=== PATIENT | male | born 1955 | race Caucasian/White ===

== ENCOUNTER 2017-04-17 14:38 | Inpatient (IN) | payer OTHER ==
[2017-04-17 16:39] VITALS: BMI 27.1
--- NOTE | 2017-04-17 18:27 | HP ---
CIWA Score - CIWA Score Nausea/Vomitin Muscle Tremors: 3 Anxiety: 3 Agitation: 3 Paroxysmal Sweats: 1-Minimal Palms Moist Orientation: 0-Oriented Tacttile Disturbances: 2-Mild Itch/Numbness/Burn Auditory Disturbances: 2-Mild Harshness/Frighten Visual Disturbances: 1-Very Mild Sensitivity Headache: 2-Mild CIWA-Ar Total Score: 20 Admission ROS BHS - HPI Chief Complaint: I AM HERE FOR DETOX FROM XANAX AND KLONOPIN Allergies/Adverse Reactions: Allergies Allergy/AdvReac Type Severity Reaction Status Date / Time No Known Allergies Allergy Verified 09/22/15 17:19 History of Present Illness: THIS 62 YEARS OLD MALE WITH XANAX,KLONOPIN DEPENDENCE,MMTP 90 MGS/DAY,LAST MEDICAED TODY, HEPATITIS C FOLLOW UP WITH CLINIC SEIZURE LAST 04/16/17 NICOTINE DEPENDENCE WEIGHT LOSS LONGEST PERIOD OF SOBRIETY 7 YEARS S/P APPENDECTOMY AGE 13 YEARS S/P UMBILICAL HERNIA DEPRESSION - Ebola screening Have you traveled outside of the country in the last 21 days: No Have you had contact with anyone from an Ebola affected area: No Have you been sick,other than usual withdrawal symptoms: No - Review of Systems Constitutional: Loss of Appetite, Malaise, Night Sweats, Changes in sleep, Weakness EENT: reports: Nose Congestion Respiratory: reports: Other (ASTHMA) Cardiac: reports: No Symptoms Reported GI: reports: Nausea, Vomiting, Abdominal cramping : reports: Other Musculoskeletal: reports: Back Pain, Muscle Pain Integumentary: reports: Dryness Neuro: reports: Headache, Tremors Endocrine: reports: No Symptoms Reported Hematology: reports: No Symptoms Reported Psychiatric: reports: No Sypmtoms Reported, Judgement Intact, Mood/Affect Appropiate, Orientated x3, Depressed Patient History - Patient Medical History Hx Anemia: No Hx Asthma: No Hx Chronic Obstructive Pulmonary Disease (COPD): Yes (COPD) Hx Cancer: No Hx Cardiac Disorders: No Hx Congestive Heart Failure: No Hx Hypertension: No Hx Hypercholesterolemia: No Hx Pacemaker: No HX Cerebrovascular Accident: No Hx Seizures: No Hx Dementia: No Hx Diabetes: No Hx Gastrointestinal Disorders: No Hx Liver Disease: No Hx Genitourinary Disorders: No Hx Sexually Transmitted Disorders: No Hx Renal Disease (ESRD): No Hx Thyroid Disease: No Hx Human Immunodeficiency Virus (HIV): No (last 08/30 negative NEGATIVE) Hx Hepatitis C: Yes (NO TREATMENT) Hx Depression: Yes Hx Suicide Attempt: No Hx Bipolar Disorder: No Hx Schizophrenia: No Other Medical History: NO SUICIDAL,NO HOMICIDAL - Patient Surgical History Past Surgical History: Yes Hx Neurologic Surgery: No Hx Cataract Extraction: No Hx Cardiac Surgery: No Hx Lung Surgery: No Hx Breast Surgery: No Hx Breast Biopsy: No Hx Abdominal Surgery: Yes (umbilical hernia) Hx Appendectomy: Yes (at 14 yrs old.) Hx Cholecystectomy: No Hx Genitourinary Surgery: No Hx Section: No Hx Orthopedic Surgery: No Other Surgical History: HERNIA REPAIR 01/28 - PPD History Previous Implant?: Yes Documented Results: Positive w/o proof Implanted On Prior [facility] Admission?: No PPD to be Administered?: No - Smoking Cessation Smoking history: Current every day smoker Have you smoked in the past 12 months: Yes Aproximately how many cigarettes per day: 6 Hx Chewing Tobacco Use: No Initiated information on smoking cessation: Yes 'Breaking Loose' booklet given: 04/17/17 - Substance & Tx. History Hx Alcohol Use: No Hx Substance Use: Yes Substance Use Type: Tranquilizers Hx Substance Use Treatment: Yes ([facility] 01/28) - Substances Abused Alprazolam (Xanax) Route: Oral Frequency: Daily Amount used: 4-6mg Age of first use: 9 Date of Last Use: 04/16/17 Benzodiazepine (Klonopin) Route: Oral Frequency: Daily Amount used: 4-5mg Age of first use: 9 Date of Last Use: 04/17/17 Heroin Route: Inhalation Frequency: 1-3 times last 30 days Amount used: 1 bag Age of first use: 11 Date of Last Use: 04/15/17 Alcohol Route: Oral Frequency: 1-2 times per week Amount used: 1 pint Age of first use: 9 Date of Last Use: 04/13/17 Family Disease History - Family Disease History Family Disease History: Diabetes: Mother (), Sister (ALCOHOL,DSA, ), Other: Sister Admission Physical Exam BHS - Vital Signs Vital Signs: Vital Signs - 24 hr 04/17/17 16:37 Temperature 97 F L Pulse Rate 70 Respiratory 20 Rate Blood Pressure 126/82 - Physical General Appearance: Yes: Moderate Distress, Tremorous, Irritable, Sweating, Anxious HEENTM: Yes: Normal ENT Inspection, HAL, Pharynx Normal Respiratory: Yes: Lungs Clear, Normal Breath Sounds, No Respiratory Distress Neck: Yes: Within Normal Limits, Supple, Trachea in good position Breast: Yes: Within Normal Limits Cardiology: Yes: Within Normal Limits, Regular Rhythm, Regular Rate, S1, S2 Abdominal: Yes: Within Normal Limits, Normal Bowel Sounds, Non Tender, Flat, Soft, Surgical Scar Genitourinary: Yes: Within Normal Limits Back: Yes: Muscle Spasm Musculoskeletal: Yes: Back pain, Muscle Pain Extremities: Yes: Within Normal Limits, Normal Range of Motion, Tremors Neurological: Yes: metal sorter II-XII NML intact, Alert, Motor Strength 5/5 Integumentary: Yes: Dry Lymphatic: Yes: Within Normal Limits - Diagnostic (1) Uncomplicated sedative, hypnotic or anxiolytic withdrawal Current Visit: Yes Status: Chronic (2) Anxiety and depression Current Visit: No Status: Acute (3) Hepatitis C Current Visit: No Status: Acute Qualifiers: Viral hepatitis chronicity: chronic Hepatic coma status: without hepatic coma Qualified Code(s): B18.2 - Chronic viral hepatitis C; B18.2 - Chronic viral hepatitis C; B18.2 - Chronic viral hepatitis C; B18.2 - Chronic viral hepatitis C (4) Insomnia Current Visit: No Status: Acute (5) Methadone maintenance therapy patient Current Visit: Yes Status: Chronic (6) Nicotine dependence Current Visit: No Status: Acute (7) History of appendectomy Current Visit: Yes Status: Acute Cleared for Admission [facility] - Detox or Rehab [facility] Level of Care: Medically Managed Detox Regimen/Protocol: Valium S Breath Alcohol Content Breath Alcohol Content: 0 Urine Drug Screen - Results Drug Screen Negative: No Urine Drug Screen Results: OPI-Opiates, BZO-Benzodiazepines, MTD-Methadone, TCA- Tricyclic Antidepress
[2017-04-17] MEDS ORDERED: MAGNESIUM HYDROX 2400MG/30ML ORAL SUSPENSION 30 ML CUP PO PRN (18:40)
[2017-04-17] MEDS ORDERED: ACETAMINOPHEN 325 MG TABLET (FP) PO PRN (18:40)
[2017-04-17] MEDS ORDERED: IBUPROFEN 400 MG TABLET (FP) PO PRN (18:40)
[2017-04-17] MEDS ORDERED: LOPERAMIDE HCL 2 MG CAPSULE PO PRN (18:40)
[2017-04-17] MEDS ORDERED: MENTHOL/PHENOL 1 EACH UD MM PRN (18:40)
[2017-04-17] MEDS ORDERED: P-EPHED 60MG/TRIPROLIDI 2.5MG TABLET PO PRN (18:40)
[2017-04-17] MEDS ORDERED: MAG HYDROX/AL HYDROX/SIMETH 30 ML UNIT-DOSE CUP PO PRN (18:40)
[2017-04-17] MEDS ORDERED: MAGNESIUM CITRATE 300 ML BOTTLE PO PRN (18:40)
[2017-04-17] MEDS ORDERED: hydrOXYzine PAMOATE 50 MG CAPSULE (FP) PO PRN (18:40)
[2017-04-17] MEDS ORDERED: diazePAM 5 MG TABLET PO ONE (20:11)
[2017-04-17] MEDS ORDERED: ALBUTEROL SO4 18 GM HFA INHALER IH ONE (21:02)
[2017-04-17] MEDS: ALBUTEROL SO4 18 GM HFA INHALER IH PRN (21:05)
[2017-04-17] MEDS: NICOTINE 14 MG/24 HOURS TOPICAL PATCH TD SCH (21:06)
[2017-04-17] MEDS: diphenhydrAMINE HCL 50 MG CAPSULE PO PRN (22:44)
[2017-04-17] MEDS: BUDESONIDE/FORMETEROL FUMARATE 80/4.5 mcg INHALER IH SCH (22:45)
[2017-04-17] MEDS: THIAMINE HCL 100 MG TABLET (FP) PO SCH (22:45)
[2017-04-17] MEDS: diazePAM 5 MG TABLET PO SCH (22:45)
[2017-04-17 23:58] LABS: URINE APPEARANCE CLEAR; URINE BILIRUBIN NEGATIVE (NEGATIVE); URINE BLOOD NEGATIVE (NEGATIVE); URINE COLOR YELLOW; URINE GLUCOSE (UA) NEGATIVE (NEGATIVE); URINE KETONE NEGATIVE (NEGATIVE); URINE LEUK ESTERASE NEGATIVE (NEGATIVE); URINE NITRITE NEGATIVE (NEGATIVE); URINE PROTEIN NEGATIVE (NEGATIVE)
[2017-04-18] MEDS: diazePAM 5 MG TABLET PO SCH ×3 (06:28→22:47)
[2017-04-18] MEDS: ALBUTEROL SO4 18 GM HFA INHALER IH PRN ×3 (06:28→22:47)
[2017-04-18] MEDS ORDERED: METHADONE HCL 10 MG TABLET PO ONE (09:32)
[2017-04-18] MEDS ORDERED: METHADONE 80 MG, METHADONE 10 MG PO ONE (10:05)
[2017-04-18 10:21] LABS: MCH 29.9 pg (25.7-33.7); MCHC 33.1 g/dl (32.0-35.9); MEAN CELL VOLUME 90.4 fl (80-96); MEAN PLT VOLUME 10.6 fl (7.5-11.1); PLATELET COUNT 106 K/MM3 (134-434); RDW 14.7 % (11.9-15.9); WHITE BLOOD COUNT 9.3 K/mm3 (4.0-10.0)
--- NOTE | 2017-04-18 10:31 | CONSULT ---
[facility] Psychiatric Consult - Data Date of interview: 04/18/17 Admission source: [facility] Identifying data: This is a 62 year old male father of 2, unemployed on SSI, residing with his friend in [facility]. Substance Abuse History: Patient reports started xanax, klonopin at age of 9, daily use 4-6 mg daily, drinking alcohol 1 pint 2-3 x weekly, he is on MMTP 90 mg. Longest clean time is 7 years. Medical History: Astma. Hep C, drug withdrawal seizure x 1. Psychiatric History: Reports seeing a psychiatrist in 2016 in [place] to address anxiety and insomnia, reports he was prescribed klonopin and xanax and short term treatment with Buspar, while at [facility] detox seen by and was put on ambien. Patient reports he feels anxious all day and continues with difficulties at nights. No history of psychiatric hospitalizations. Physical/Sexual Abuse/Trauma History: Denies. Mental Status Exam - Mental Status Exam Alert and Oriented to: Time, Place, Person Patient Appearance: Disheveled Mood: Anxious Affect: Appropriate, Mood Congruent Patient Behavior: Appropriate, Cooperative Speech Pattern: Clear, Appropriate Voice Loudness: Normal Thought Process: Goal Oriented Thought Disorder: Not Present Hallucinations: Denies Suicidal Ideation: Denies Homicidal Ideation: Denies Insight/Judgement: Fair Sleep: Poorly Appetite: Fair Muscle strength/Tone: Normal Gait/Station: Normal Psychiatric Findings - Problem List ([place] 1, 2,3) (1) Substance-induced anxiety disorder Current Visit: Yes Status: Acute (2) Methadone maintenance therapy patient Current Visit: No Status: Acute (3) Nicotine dependence Current Visit: No Status: Acute (4) Sedative addiction Current Visit: Yes Status: Acute - Initial Treatment Plan Initial Treatment Plan: discussed indications and properties of Buspar, medications was recommended patient agreed with careplan, will start Buspar 5 mg po bid, continue detox. protocol.
[2017-04-18 11:06] LABS: ALBUMIN 3.3 g/dl (3.4-5.0); ALK PHOS 65 U/L (45-117); ANION GAP 6 (8-16); BILIRUBIN,TOTAL 1.1 mg/dL (0.2-1.0); CALCIUM 8.3 mg/dL (8.5-10.1); CO2 31 mmol/L (21-32); GLUCOSE,RANDOM 170 mg/dL (74-106); SGOT/AST 31 U/L (15-37); SGPT/ALT 46 U/L (12-78); TOT PROT 6.6 g/dl (6.4-8.2)
[2017-04-18] MEDS: BUDESONIDE/FORMETEROL FUMARATE 80/4.5 mcg INHALER IH SCH ×2 (11:12→22:47)
[2017-04-18] MEDS: diazePAM 5 MG TABLET PO PRN ×2 (11:12→17:35)
[2017-04-18] MEDS: PRENATAL VITAMINS W/ FOLIC ACID TABLET (FP) PO SCH (11:12)
[2017-04-18] MEDS: NICOTINE 14 MG/24 HOURS TOPICAL PATCH TD SCH (11:14)
[2017-04-18] MEDS ORDERED: METHADONE HCL 40 MG DISPERSABLE TABLET ONE (11:16)
[2017-04-18] MEDS ORDERED: METHADONE HCL 10 MG TABLET ONE (11:16)
[2017-04-18] MEDS: busPIRone HCL 5 MG TABLET PO SCH ×2 (11:17→22:47)
[2017-04-18] MEDS ORDERED: FLU VACCINE QUAD 60 MCG/0.5 ML (MDV 17-18) IM ONE (12:00)
--- NOTE | 2017-04-18 12:36 | PN ---
S CIWA - CIWA Score Nausea/Vomitin-No Nausea/No Vomiting Muscle Tremors: 4-Moderate,w/Arms Extend Anxiety: 3 Agitation: 4-Moderately Restless Paroxysmal Sweats: 3 Orientation: 0-Oriented Tacttile Disturbances: 0-None Auditory Disturbances: 0-None Visual Disturbances: 0-None Headache: 0-None Present CIWA-Ar Total Score: 14 BHS Progress Note (SOAP) Subjective: agitation anxiety interrupted sleep body aches sweats Objective: 04/18/17 12:36 Vital Signs Temperature 98.1 F 04/18/17 11:23 Pulse Rate 91 H 04/18/17 11:23 Respiratory Rate 20 04/18/17 11:23 Blood Pressure 141/75 04/18/17 11:23 O2 Sat by Pulse Oximetry (%) Laboratory Tests 04/17/17 04/18/17 04/18/17 23:45 07:00 07:00 WBC 9.3 D RBC 4.33 Hgb 12.9 Hct 39.1 MCV 90.4 MCH 29.9 MCHC 33.1 RDW 14.7 Plt Count 106 L D MPV 10.6 Sodium 137 Potassium 4.2 Chloride 100 Carbon Dioxide 31 Anion Gap 6 L BUN 12 D Creatinine 1.0 Creat Clearance w eGFR > 60 Random Glucose 170 H D Calcium 8.3 L Total Bilirubin 1.1 H D AST 31 ALT 46 D Alkaline Phosphatase 65 Total Protein 6.6 Albumin 3.3 L Urine Color Yellow Urine Appearance Clear Urine pH 5.0 D Ur Specific [place] >= 1.030 H Urine Protein Negative Urine Glucose (UA) Negative Urine Ketones Negative Urine Blood Negative Urine Nitrite Negative Urine Bilirubin Negative Urine Urobilinogen 2.0 RPR Titer 04/18/17 07:00 WBC RBC Hgb Hct MCV MCH MCHC RDW Plt Count MPV Sodium Potassium Chloride Carbon Dioxide Anion Gap BUN Creatinine Creat Clearance w eGFR Random Glucose Calcium Total Bilirubin AST ALT Alkaline Phosphatase Total Protein Albumin Urine Color Urine Appearance Urine pH Ur Specific [place] Urine Protein Urine Glucose (UA) Urine Ketones Urine Blood Urine Nitrite Urine Bilirubin Urine Urobilinogen RPR Titer Nonreactive aaox3 ambulating no acute distress Assessment: 04/18/17 12:36 withdrawal sx Plan: continue detox increase fluids
--- NOTE | 2017-04-18 14:22 | EKG ---
Test Reason : Blood Pressure : / mmHG Vent. Rate : 074 BPM Atrial Rate : 074 BPM P-R Int : 128 ms QRS Dur : 092 ms QT Int : 420 ms P-R-T Axes : 059 047 039 degrees QTc Int : 466 ms NORMAL SINUS RHYTHM NORMAL ECG NO PREVIOUS ECGS AVAILABLE Confirmed by LAURIE MADISON MD ([id number]) on 04/18/2017 2:21:48 PM Referred By: Confirmed By:LAURIE MADISON MD
[2017-04-18] MEDS: diphenhydrAMINE HCL 50 MG CAPSULE PO PRN (22:46)
[2017-04-18] MEDS: THIAMINE HCL 100 MG TABLET (FP) PO SCH (22:48)
[2017-04-19] MEDS ORDERED: METHADONE HCL 10 MG TABLET ONE (04:58)
[2017-04-19] MEDS ORDERED: METHADONE HCL 40 MG DISPERSABLE TABLET ONE (04:58)
[2017-04-19] MEDS: METHADONE 80 MG, METHADONE 10 MG PO SCH (05:41)
[2017-04-19] MEDS ORDERED: METHADONE HCL 10 MG TABLET PO SCH (06:00)
[2017-04-19] MEDS: busPIRone HCL 5 MG TABLET PO SCH ×2 (11:04→22:35)
[2017-04-19] MEDS: diazePAM 5 MG TABLET PO SCH ×2 (11:04→22:35)
[2017-04-19] MEDS: PRENATAL VITAMINS W/ FOLIC ACID TABLET (FP) PO SCH (11:04)
[2017-04-19] MEDS: NICOTINE 14 MG/24 HOURS TOPICAL PATCH TD SCH (11:05)
[2017-04-19] MEDS: BUDESONIDE/FORMETEROL FUMARATE 80/4.5 mcg INHALER IH SCH ×2 (11:05→22:34)
--- NOTE | 2017-04-19 12:41 | PN ---
[facility] CIWA - CIWA Score Nausea/Vomitin-No Nausea/No Vomiting Muscle Tremors: 3 Anxiety: 3 Agitation: 3 Paroxysmal Sweats: 3 Orientation: 0-Oriented Tacttile Disturbances: 0-None Auditory Disturbances: 0-None Visual Disturbances: 0-None Headache: 0-None Present CIWA-Ar Total Score: 12 S Progress Note (SOAP) Subjective: agitation sweats shakes interrupted sleep Objective: 04/19/17 12:41 Vital Signs Temperature 98.1 F 04/19/17 10:00 Pulse Rate 72 04/19/17 10:00 Respiratory Rate 20 04/19/17 10:00 Blood Pressure 128/73 04/19/17 10:00 O2 Sat by Pulse Oximetry (%) Laboratory Tests 04/17/17 04/18/17 04/18/17 23:45 07:00 07:00 WBC 9.3 D RBC 4.33 Hgb 12.9 Hct 39.1 MCV 90.4 MCH 29.9 MCHC 33.1 RDW 14.7 Plt Count 106 L D MPV 10.6 Sodium 137 Potassium 4.2 Chloride 100 Carbon Dioxide 31 Anion Gap 6 L BUN 12 D Creatinine 1.0 Creat Clearance w eGFR > 60 Random Glucose 170 H D Calcium 8.3 L Total Bilirubin 1.1 H D AST 31 ALT 46 D Alkaline Phosphatase 65 Total Protein 6.6 Albumin 3.3 L Urine Color Yellow Urine Appearance Clear Urine pH 5.0 D Ur Specific [place] >= 1.030 H Urine Protein Negative Urine Glucose (UA) Negative Urine Ketones Negative Urine Blood Negative Urine Nitrite Negative Urine Bilirubin Negative Urine Urobilinogen 2.0 RPR Titer 04/18/17 07:00 WBC RBC Hgb Hct MCV MCH MCHC RDW Plt Count MPV Sodium Potassium Chloride Carbon Dioxide Anion Gap BUN Creatinine Creat Clearance w eGFR Random Glucose Calcium Total Bilirubin AST ALT Alkaline Phosphatase Total Protein Albumin Urine Color Urine Appearance Urine pH Ur Specific [place] Urine Protein Urine Glucose (UA) Urine Ketones Urine Blood Urine Nitrite Urine Bilirubin Urine Urobilinogen RPR Titer Nonreactive aaox3 ambulating no acute distress Assessment: 04/19/17 12:41 withdrawal sx Plan: continue detox increase fluids
--- NOTE | 2017-04-19 15:53 | PN ---
BHS Progress Note Note: chest x-ray reviewed and noted; no significant changes. encouraged to see his PMD with chest x-ray result for any further tx if there is any respiratory changes. However for now no further tx needed.
[2017-04-19] MEDS: diazePAM 5 MG TABLET PO PRN (19:24)
[2017-04-19] MEDS: THIAMINE HCL 100 MG TABLET (FP) PO SCH (22:35)
[2017-04-19] MEDS: ALBUTEROL SO4 18 GM HFA INHALER IH PRN (22:35)
[2017-04-20] MEDS ORDERED: METHADONE HCL 10 MG TABLET ONE (05:40)
[2017-04-20] MEDS ORDERED: METHADONE HCL 40 MG DISPERSABLE TABLET ONE (05:40)
[2017-04-20] MEDS: METHADONE 80 MG, METHADONE 10 MG PO SCH (06:29)
[2017-04-20] MEDS: BUDESONIDE/FORMETEROL FUMARATE 80/4.5 mcg INHALER IH SCH ×2 (11:09→22:18)
[2017-04-20] MEDS: diazePAM 5 MG TABLET PO SCH ×2 (11:09→22:18)
[2017-04-20] MEDS: busPIRone HCL 5 MG TABLET PO SCH ×2 (11:09→22:18)
[2017-04-20] MEDS: PRENATAL VITAMINS W/ FOLIC ACID TABLET (FP) PO SCH (11:09)
[2017-04-20] MEDS: guaiFENesin/D-METHORPHAN HB 10 ML UNIT-DOSE CUPS PO PRN ×2 (11:10→22:21)
--- NOTE | 2017-04-20 11:37 | PN ---
S Progress Note (SOAP) Subjective: Pt. has COPD c/o sob & productive cough. Was on prednisone & Zithromax on 04/10 unclear if he completed treatment. Objective: 04/20/17 11:35 Vital Signs - 8 hr 04/20/17 04/20/17 06:00 10:00 Temperature 97.7 F 98.1 F Pulse Rate 70 72 Respiratory 18 18 Rate Blood Pressure 112/65 128/71 Laboratory Last Values WBC 9.3 K/mm3 (4.0-10.0) D 04/18/17 07:00 RBC 4.33 M/mm3 (4.00-5.60) 04/18/17 07:00 Hgb 12.9 GM/dL (11.7-16.9) 04/18/17 07:00 Hct 39.1 % (35.4-49) 04/18/17 07:00 MCV 90.4 fl (80-96) 04/18/17 07:00 MCH 29.9 pg (25.7-33.7) 04/18/17 07:00 MCHC 33.1 g/dl (32.0-35.9) 04/18/17 07:00 RDW 14.7 % (11.9-15.9) 04/18/17 07:00 Plt Count 106 K/MM3 (134-434) L D 04/18/17 07:00 MPV 10.6 fl (7.5-11.1) 04/18/17 07:00 Sodium 137 mmol/L (136-145) 04/18/17 07:00 Potassium 4.2 mmol/L (3.5-5.1) 04/18/17 07:00 Chloride 100 mmol/L (98-107) 04/18/17 07:00 Carbon Dioxide 31 mmol/L (21-32) 04/18/17 07:00 Anion Gap 6 (8-16) L 04/18/17 07:00 BUN 12 mg/dL (7-18) D 04/18/17 07:00 Creatinine 1.0 mg/dL (0.7-1.3) 04/18/17 07:00 Creat Clearance w eGFR > 60 (>60) 04/18/17 07:00 Random Glucose 170 mg/dL (74-106) H D 04/18/17 07:00 Calcium 8.3 mg/dL (8.5-10.1) L 04/18/17 07:00 Total Bilirubin 1.1 mg/dL (0.2-1.0) H D 04/18/17 07:00 AST 31 U/L (15-37) 04/18/17 07:00 ALT 46 U/L (12-78) D 04/18/17 07:00 Alkaline Phosphatase 65 U/L (45-117) 04/18/17 07:00 Total Protein 6.6 g/dl (6.4-8.2) 04/18/17 07:00 Albumin 3.3 g/dl (3.4-5.0) L 04/18/17 07:00 Urine Color Yellow 04/17/17 23:45 Urine Appearance Clear 04/17/17 23:45 Urine pH 5.0 (5.0-8.0) D 04/17/17 23:45 Ur Specific [place] >= 1.030 (1.005-1.025) H 04/17/17 23:45 Urine Protein Negative (NEGATIVE) 04/17/17 23:45 Urine Glucose (UA) Negative (NEGATIVE) 04/17/17 23:45 Urine Ketones Negative (NEGATIVE) 04/17/17 23:45 Urine Blood Negative (NEGATIVE) 04/17/17 23:45 Urine Nitrite Negative (NEGATIVE) 04/17/17 23:45 Urine Bilirubin Negative (NEGATIVE) 04/17/17 23:45 Urine Urobilinogen 2.0 mg/dL (0.2-1.0) 04/17/17 23:45 RPR Titer Nonreactive (NONREACTIVE) 04/18/17 07:00 Lungs : No wheezing,few rhonchi noted Assessment: 04/20/17 11:35 R/O acute exacerbation of COPD Plan: Continue detox resume zithromax & Prednisone duoned nebulizer
[2017-04-20] MEDS ORDERED: predniSONE 20 MG TABLET (UD) PO ONE (11:45)
[2017-04-20] MEDS: NICOTINE 14 MG/24 HOURS TOPICAL PATCH TD SCH (13:34)
[2017-04-20] MEDS: AZITHROMYCIN 250 MG TABLET PO SCH (13:34)
[2017-04-20] MEDS: ALBUTEROL SO4 2.5/IPRATROPIUM 0.5 INH SOL 3 ML VIAL.NEB. NEB SCH ×2 (13:35→17:55)
[2017-04-20] MEDS: ALBUTEROL SO4 18 GM HFA INHALER IH PRN (22:18)
[2017-04-20] MEDS: THIAMINE HCL 100 MG TABLET (FP) PO SCH (22:18)
[2017-04-20] MEDS: diphenhydrAMINE HCL 50 MG CAPSULE PO PRN (22:20)
[2017-04-21] MEDS ORDERED: METHADONE HCL 10 MG TABLET ONE (05:20)
[2017-04-21] MEDS ORDERED: METHADONE HCL 40 MG DISPERSABLE TABLET ONE (05:20)
[2017-04-21] MEDS: METHADONE 80 MG, METHADONE 10 MG PO SCH (06:01)
[2017-04-21] MEDS: guaiFENesin/D-METHORPHAN HB 10 ML UNIT-DOSE CUPS PO PRN (06:03)
[2017-04-21] MEDS ORDERED: predniSONE 20 MG TABLET (UD) PO SCH (10:00)
[2017-04-21] MEDS ORDERED: diazePAM 5 MG TABLET PO SCH (10:00)
--- NOTE | 2017-04-21 10:05 | DS ---
[facility] Detox Discharge Summary Admission Date: 04/17/17 Discharge Date: 04/22/17 - History Present History: Sedative Dependence, MMTP Additional Comments: FOLLOW UP WITH AFTER CARE PROGRAM ARRANGEMENT AND CLINIC AT [facility] Pertinent Past History: NICOTINE DEPENDENCE ACUTE BRONCHITIS - Physical Exam Results Vital Signs: Vital Signs Temperature 97.5 F L 04/21/17 06:00 Pulse Rate 60 04/21/17 06:00 Respiratory Rate 18 04/21/17 06:00 Blood Pressure 123/71 04/21/17 06:00 O2 Sat by Pulse Oximetry (%) Pertinent Admission Physical Exam Findings: WITHDRAWAL SYMPTOM - Treatment Hospital Course: Detox Protocol Followed, Detoxed Safely, Responded well, Discharged Condition Good - Medication Discharge Medications: Ambulatory Orders Albuterol Sulfate Inhaler - [Ventolin Hfa Inhaler -] 2 inh PO Q4H PRN 04/17/17 Fluticasone/Salmeterol [Advair 250-50 Diskus] 1 each IH BID 04/17/17 Buspirone HCl [Buspar -] 5 mg PO BID #60 tablet 04/18/17 - Diagnosis (1) Uncomplicated sedative, hypnotic or anxiolytic withdrawal Current Visit: Yes Status: Chronic (2) Anxiety and depression Current Visit: No Status: Acute (3) Hepatitis C Current Visit: No Status: Acute Qualifiers: Viral hepatitis chronicity: chronic Hepatic coma status: without hepatic coma Qualified Code(s): B18.2 - Chronic viral hepatitis C; B18.2 - Chronic viral hepatitis C; B18.2 - Chronic viral hepatitis C; B18.2 - Chronic viral hepatitis C (4) Insomnia Current Visit: No Status: Acute (5) Methadone maintenance therapy patient Current Visit: Yes Status: Chronic (6) Nicotine dependence Current Visit: No Status: Acute (7) History of appendectomy Current Visit: Yes Status: Acute (8) Acute bronchitis Current Visit: Yes Status: Acute (9) COPD (chronic obstructive pulmonary disease) Current Visit: Yes Status: Acute - AMA Did Patient Leave Against Medical Advice: No
[2017-04-21] MEDS: busPIRone HCL 5 MG TABLET PO SCH (10:07)
[2017-04-21] MEDS: PRENATAL VITAMINS W/ FOLIC ACID TABLET (FP) PO SCH (10:07)
[2017-04-21] MEDS: BUDESONIDE/FORMETEROL FUMARATE 80/4.5 mcg INHALER IH SCH (10:07)
[2017-04-21] MEDS: AZITHROMYCIN 250 MG TABLET PO SCH (10:08)
[2017-04-21] MEDS: ALBUTEROL SO4 18 GM HFA INHALER IH PRN (10:11)
[2017-04-21 10:24] VITALS: BP 119/71; PULSE 63; TEMP 97.2
== END 2017-04-21 10:35 | disposition home or self-care (01) | DRG 773 ==
LOC: YASAS 14:38 → Y6N 19:22
PROVIDERS: ADMIT Internal Medicine; ATTEND Internal Medicine
PROC: HZ2ZZZZ Detoxification Services for Substance Abuse Treatment (ICD-10-PCS; principal; 2017-04-17)
DX: F13.230 Sedative, hypnotic or anxiolytic dependence with withdrawal, uncomplicated (principal); F11.20 Opioid dependence, uncomplicated; F17.210 Nicotine dependence, cigarettes, uncomplicated; F41.8 Other specified anxiety disorders; F19.280 Other psychoactive substance dependence with psychoactive substance-induced anxiety disorder; G47.00 Insomnia, unspecified; B18.2 Chronic viral hepatitis C; J20.9 Acute bronchitis, unspecified; H44.9 Unspecified disorder of globe; Z90.89 Acquired absence of other organs; Z86.69 Personal history of other diseases of the nervous system and sense organs
CPT/HCPCS: 36415; 71020-TC; 80053; 81003; 85027; 86593; 90688; 93005; 93010; 94640; G0008